=== PATIENT | female | born 1985 | race Caucasian/White ===

== ENCOUNTER 2017-01-24 11:10 | Emergency (ER) | payer MEDICAID ==
[~2017-01-24] VITALS: Ht 160 cm; Wt 92.5 kg
[2017-01-24 12:27] VITALS: BP 127/76
== END 2017-01-24 13:24 | disposition home or self-care (01) ==
LOC: ED 11:10
DX: R07.89 Other chest pain (principal); Z90.49 Acquired absence of other specified parts of digestive tract
CPT/HCPCS: J1885

== ENCOUNTER 2017-07-29 18:23 | Emergency (ER) | payer MEDICAID ==
[~2017-07-29] VITALS: Ht 160 cm; Wt 93.0 kg
[2017-07-29 21:15] VITALS: Ht 160 cm; Wt 93.0 kg
[2017-07-29 23:13] VITALS: BP 120/66
== END 2017-07-29 23:13 | disposition home or self-care (01) ==
LOC: ED 18:23
DX: J02.9 Acute pharyngitis, unspecified (principal); R09.89 Other specified symptoms and signs involving the circulatory and respiratory systems

== ENCOUNTER 2017-11-19 12:12 | Emergency (ER) | payer MEDICAID ==
[~2017-11-19] VITALS: Ht 160 cm; Wt 88.0 kg
[2017-11-19 12:24] VITALS: Ht 160 cm; Wt 88.0 kg
[2017-11-19 13:31] VITALS: BP 117/83
== END 2017-11-19 13:31 | disposition home or self-care (01) ==
LOC: ED 12:12
DX: J02.9 Acute pharyngitis, unspecified (principal); H92.01 Otalgia, right ear; Z90.49 Acquired absence of other specified parts of digestive tract

== ENCOUNTER 2018-04-14 17:09 | Emergency (ER) | payer MEDICAID ==
[~2018-04-14] VITALS: Ht 160 cm; Wt 92.1 kg
[2018-04-14 17:15] VITALS: Ht 160 cm; Wt 92.1 kg
[2018-04-14 18:32] LABS: microscopic required? NO
[2018-04-14 18:38] LABS: BASOPHIL % 1.1 % (0-2); PLATELET COUNT 207 x10^3mcL (130-400); RED CELL DISTRIBUTION WIDTH 13.8 % (11.5-14.5)
[2018-04-14 18:46] LABS: CALCIUM 8.7 mg/dL (8.5-10.1); CARBON DIOXIDE 29.2 mmol/L (21-32); CHLORIDE SERUM 101 mmol/L (98-107); CREATININE SERUM 0.6 mg/dL (0.6-1.0); GFR1 > 60 mL/min; GLUCOSE SERUM 90 mg/dL (74-106); SODIUM SERUM 137 mmol/L (136-145)
[2018-04-14 18:50] LABS: ALBUMIN 4.3 g/dL (3.4-5.0); ALKALINE PHOSPHATASE 79 U/L (46-116); ALT/SGPT 21 U/L (14-59); AMYLASE 28 U/L (25-115); AST/SGOT 21 U/L (15-37); BILIRUBIN TOTAL 0.54 mg/dL (0.20-1.00); LIPASE 137 IU/L (73-393)
[2018-04-14 18:56] LABS: TOTAL PROTEIN, SERUM 8.3 g/dL (6.4-8.2)
[2018-04-14 19:19] LABS: urine erythrocyte NEGATIVE (NEGATIVE)
[2018-04-14 20:55] VITALS: BP 126/77
== END 2018-04-14 20:55 | disposition home or self-care (01) ==
LOC: ED 17:09
PROVIDERS: Emergency Medicine
DX: R10.12 Left upper quadrant pain (principal); Z90.49 Acquired absence of other specified parts of digestive tract
CPT/HCPCS: J1885; J7030; Q0092

== ENCOUNTER 2018-11-01 11:18 | Emergency (ER) | payer SELFPAY ==
[~2018-11-01] VITALS: Ht 160 cm; Wt 928.5 kg
[2018-11-01 11:25] VITALS: Ht 160 cm; Wt 928.5 kg
[2018-11-01 12:04] LABS: BASOPHIL % 0.4 % (0-2); PLATELET COUNT 327 x10^3mcL (130-400); RED CELL DISTRIBUTION WIDTH 13.2 % (11.5-14.5)
[2018-11-01 12:07] LABS: CARBON DIOXIDE 29.7 mmol/L (21-32); CHLORIDE SERUM 103 mmol/L (98-107); CREATININE SERUM 0.5 mg/dL (0.6-1.0); GFR1 > 60 mL/min; GLUCOSE SERUM 101 mg/dL (74-106); POTASSIUM SERUM 4.2 mmol/L (3.5-5.1); SODIUM SERUM 140 mmol/L (136-145)
[2018-11-01 12:11] LABS: ALBUMIN 4.3 g/dL (3.4-5.0); ALKALINE PHOSPHATASE 72 U/L (46-116); ALT/SGPT 42 U/L (14-59); AST/SGOT 22 U/L (15-37); BILIRUBIN TOTAL 0.7 mg/dL (0.20-1.00); LIPASE 92 IU/L (73-393); TOTAL PROTEIN, SERUM 7.9 g/dL (6.4-8.2)
[2018-11-01 13:06] LABS: microscopic required? YES; urine erythrocyte TRACE (NEGATIVE)
[2018-11-01 13:19] LABS: AMPHETAMINE QUAL UR NONE DETECTED (See below)
[2018-11-01 14:40] VITALS: BP 125/75
== END 2018-11-01 14:40 | disposition home or self-care (01) ==
LOC: ED 11:18
PROVIDERS: Emergency Medicine
DX: S39.011A Strain of muscle, fascia and tendon of abdomen, initial encounter (principal); F12.10 Cannabis abuse, uncomplicated; Z90.49 Acquired absence of other specified parts of digestive tract; X58.XXXA Exposure to other specified factors, initial encounter; Y93.89 Activity, other specified; Y92.89 Other specified places as the place of occurrence of the external cause; Y99.8 Other external cause status
CPT/HCPCS: J1100; J1885; J2405; J3490; J7030

== ENCOUNTER 2019-01-30 11:27 | Emergency (ER) | payer MEDICAID ==
[~2019-01-30] VITALS: Ht 160 cm; Wt 90.4 kg
[2019-01-30 11:41] VITALS: Ht 160 cm; Wt 90.4 kg
[2019-01-30 13:43] VITALS: BP 132/104
== END 2019-01-30 13:43 | disposition home or self-care (01) ==
LOC: ED 11:27
DX: F07.81 Postconcussional syndrome (principal); R10.9 Unspecified abdominal pain; Z90.49 Acquired absence of other specified parts of digestive tract; W22.8XXA Striking against or struck by other objects, initial encounter; Y93.89 Activity, other specified; Y92.89 Other specified places as the place of occurrence of the external cause; Y99.8 Other external cause status

== ENCOUNTER 2020-01-26 16:25 | Emergency (ER) | payer MEDICAID ==
[~2020-01-26] VITALS: Ht 160 cm; Wt 87.1 kg
[2020-01-26 16:31] VITALS: BP 127/93; Ht 160 cm; Wt 87.1 kg
== END 2020-01-26 17:19 | disposition home or self-care (01) ==
LOC: ED 16:25
DX: U07.1 COVID-19 (principal); Z90.49 Acquired absence of other specified parts of digestive tract